=== PATIENT | male | born 1985 | race Caucasian/White ===

== ENCOUNTER 2016-11-17 16:37 | Emergency (ER) | payer OTHER ==
[~2016-11-17] VITALS: Ht 172.7 cm; Wt 108.3 kg
[2016-11-17 16:40] VITALS: O2SAT 94
[2016-11-17] MEDS ORDERED: LORAZEPAM 2 MG/ML 1 ML VIAL IV STA (16:43)
[2016-11-17] MEDS ORDERED: SODIUM CHLORIDE 0.9% 500ML 500 ML IV STA (16:43)
[2016-11-17 16:50] VITALS: TEMP 36.7; Ht 172.7 cm; Wt 108.3 kg
--- NOTE | 2016-11-17 16:50 | EMERGENCY ROOM VISIT NOTE ---
History Report prepared by Haley: Yadira Bhagat Under the Supervision of: Dr. Will Meade M.D. First contact with patient: 16:41 Chief Complaint: CHEST PAIN Stated Complaint: CHEST PAIN History of Present Illness The patient is a 31 year old male who presents to the Emergency Room with complaints of persistent central chest pain that began one hour prior to arrival. He currently rates his discomfort as a 3/10, but states that it was initially a 9/10. The patient states that he was talking to his ex- today, noting that the conversation turned into an argument. He states that he developed central chest pain that radiated into his left arm. The patient additionally associates diaphoresis and shortness of breath. He denies any nausea. The patient notes a history of previous panic attacks, but denies today 's symptoms feeling similar to a panic attack. He denies ever taking any medications for his panic attacks. The patient denies any history of hypertension, high cholesterol, or diabetes. He denies any family history of heart disease. The patient denies any recent exertional issues. He states that his pain rating went from a 9/10 to a 3/10 after he was given Aspirin. Source of History: patient Onset: one hour prior to arrival Position: chest (central) Symptom Intensity: 3/10 Timing: other (persistent) Modifying Factors (Relieving): other (aspirin) Associated Symptoms: + SOB, + diaphoresis, No nausea Note: Associated Symptoms: pain down left arm Review of Systems See HPI for pertinent positives & negatives. A total of 10 systems reviewed and were otherwise negative. Past Medical & Surgical Medical Problems: (1) Panic attack Family History No pertinent family history stated. Social History Marital Status: Current/Historical Medications No Active Prescriptions or Reported Meds Allergies Coded Allergies: No Known Allergies (Unverified , 11/17/16) Physical Exam Vital Signs Date Time Temp Pulse Resp B/P Pulse Ox O2 Delivery O2 Flow Rate FiO2 11/17/16 18:30 101 16 121/78 96 Room Air 11/17/16 17:02 81 18 144/94 97 Room Air 11/17/16 16:51 105 11/17/16 16:50 36.7 104 18 139/96 94 Room Air 11/17/16 16:50 94 Room Air 11/17/16 16:40 94 Room Air Physical Exam GENERAL: Patient is anxious, somewhat tearful. HEENT: No acute trauma, normocephalic atraumatic, mucous membranes moist, no nasal congestion, no scleral icterus. NECK: No stridor, no adenopathy, no meningismus, trachea is midline. LUNGS: Clear to auscultation bilaterally, no wheeze, no rhonchi, breath sounds equal. HEART: Without murmurs gallops or rubs, regular rate and rhythm. ABDOMEN: Soft, nontender, bowel sounds positive, no hernias, no peritonitis. EXTREMITIES: No cyanosis or edema, full range of motion of all the joints without pain or difficulty, no signs for acute trauma. NEUROLOGIC: Oriented x 3, no acute motor or sensory deficits, no focal weakness. SKIN: No rash, no jaundice, no diaphoresis. Chest: Tender to the midsternal chest wall. Medical Decision & Procedures ER Provider Diagnostic Interpretation: X-ray results as stated below per interpretation by me and the radiologist: CHEST ONE VIEW PORTABLE CLINICAL HISTORY: Atypical chest pain COMPARISON STUDY: No previous studies for comparison. FINDINGS: The cardiac and mediastinal contours are normal. There is no evidence of focal pulmonary consolidation. There is no evidence of failure. No pleural effusions are visualized.[ IMPRESSION: No active disease in the chest. Electronically signed by: Alex De La Fuente M.D. 11/17/2016 5:06 PM Dictated Date/Time: 11/17/2016 5:05 PM Laboratory Results 11/17/16 16:40 11/17/16 16:40 Test 11/17/16 16:40 11/17/16 18:47 Red Blood Count 4.94 M/uL (4.7-6.1) Mean Corpuscular Volume 85.6 fL (80-100) Mean Corpuscular Hemoglobin 30.2 pg (25-34) Mean Corpuscular Hemoglobin Concent 35.2 g/dl (32-36) RDW Standard Deviation 38.3 fL (36.4-46.3) RDW Coefficient of Variation 12.3 % (11.5-14.5) Mean Platelet Volume 10.4 fL (7.4-10.4) Anion Gap 9.0 mmol/L (3-11) Est Creatinine Clear Calc Drug Dose 169.6 ml/min Estimated GFR () 141.9 Estimated GFR (Non- 122.4 BUN/Creatinine Ratio 7.0 (10-20) Calcium Level 9.2 mg/dl (8.5-10.1) Total Bilirubin 0.5 mg/dl (0.2-1) Aspartate Amino Transf (AST/SGOT) 25 U/L (15-37) Alanine Aminotransferase (ALT/SGPT) 64 U/L (12-78) Alkaline Phosphatase 98 U/L (45-117) Total Protein 8.1 gm/dl (6.4-8.2) Albumin 3.9 gm/dl (3.4-5.0) Globulin 4.2 gm/dl (2.5-4.0) Albumin/Globulin Ratio 0.9 (0.9-2) Bedside Troponin I 0.000 ng/ml (0-0.045) Laboratory results reviewed by me. Medications Administered Medications (Trade) Dose Ordered Sig/Pino Route Start Time Stop Time Status Last Admin Dose Admin Lorazepam 0.5 mg 0.5 mg NOW STAT IV 11/17/16 16:43 11/17/16 16:45 DC 11/17/16 17:01 0.5 MG Sodium Chloride (Nss 500ml) 500 ml @ 999 mls/hr Q31M STAT IV 11/17/16 16:43 11/17/16 17:13 DC 11/17/16 17:01 999 MLS/HR ECG Indication: chest pain Rate (beats per minute): 95 Rhythm: normal sinus Findings: no acute ischemic change, no ectopy, other (LVH) ED Course 1640: The patient was evaluated in room C12B. A complete history and physical exam was performed. 1642: Ordered Sodium Chloride 500 ml @ 999 mls/hr IV, Ativan Inj 0.5 mg IV. 1946: I reevaluated the patient and he is resting comfortably. I discussed the exam findings with him and I discussed the treatment plan. He verbalized complete understanding and agreement. He is ready to go home. Medical Decision The patient is a 31 year old male who presents to the ED with complaints of chest pain. Differential diagnoses considered include panic attack, anxiety, musculoskeletal pain, CO, aortic dissection, PE. There is a mild leukocytosis, this could be consistent with infection or the stress of his situation. No concerning anemia. No significant electrolyte abnormality, kidney failure or hepatitis. EKG shows a sinus rhythm, no acute ischemia. Cardiac enzyme testing 2 is not consistent with acute cardiac injury. Chest x-ray shows no mediastinal widening, pneumonia or pneumothorax. On exam, the patient seemed quite anxious. His chest wall was tender by palpation. The patient received IV saline and IV Ativan, he has done well in the emergency room, he is no longer anxious and is calm. He is not suicidal. His chest pain has resolved. I think the patient's chest pain was secondary to anxiety and panic. There also may be a musculoskeletal component. No evidence for any acute cardiac event. The patient was felt stable for discharge with outpatient follow-up. Blood Pressure Screening: Patient was found to have an elevated blood pressure and was referred to their primary doctor for recheck and further treatment. Medication Reconciliation: I attest that I have personally reviewed the patient' s current medication list. Impression Primary Impression: Precordial chest pain Additional Impression: Anxiety Scribe Attestation The scribe's documentation has been prepared under my direction and personally reviewed by me in its entirety. I confirm that the note above accurately reflects all work, treatment, procedures, and medical decision making performed by me. Departure Information Dispostion Home / Self-Care Prescriptions No Active Prescriptions or Reported Meds Referrals No Doctor, Assigned (PCP) Forms HOME CARE DOCUMENTATION FORM, IMPORTANT VISIT INFORMATION Patient Instructions [facility] [place] [facility] [employer] Additional Instructions return if you are worsening or feeling suicidal heart testing today was ok as we discussed Problem Qualifiers
--- NOTE | 2016-11-17 17:07 | DIAGNOSTIC IMAGING REPORT ---
CHEST ONE VIEW PORTABLE CLINICAL HISTORY: Atypical chest pain COMPARISON STUDY: No previous studies for comparison. FINDINGS: The cardiac and mediastinal contours are normal. There is no evidence of focal pulmonary consolidation. There is no evidence of failure. No pleural effusions are visualized.[ IMPRESSION: No active disease in the chest. Electronically signed by: Alex De La Fuente M.D. 11/17/2016 5:06 PM Dictated Date/Time: 11/17/2016 5:05 PM
[2016-11-17 17:20] LABS: HEMATOCRIT 42.3 % (42-52); MEAN CELL VOLUME 85.6 fL (80-100); MEAN CORPUSCULAR HEMOGLOBIN 30.2 pg (25-34); MEAN CORPUSCULAR HGB CONC 35.2 g/dl (32-36); MEAN PLATELET VOLUME 10.4 fL (7.4-10.4); PLATELET COUNT 251 K/uL (130-400); RED BLOOD COUNT 4.94 M/uL (4.7-6.1); WHITE BLOOD COUNT 13.03 K/uL (4.8-10.8)
[2016-11-17 19:33] LABS: CALCIUM 9.2 mg/dl (8.5-10.1); CREATININE 0.76 mg/dl (0.60-1.40); POTASSIUM 3.5 mmol/L (3.5-5.1)
[2016-11-17 19:36] LABS: ALB/GLOB RATIO 0.9 (0.9-2)
[2016-11-17 19:59] VITALS: BP 114/64; PULSE 88; O2SAT 99
== END 2016-11-17 20:00 | disposition home or self-care (01) ==
LOC: C.EDC 16:40
DX: R07.2 Precordial pain (principal); F41.9 Anxiety disorder, unspecified